=== PATIENT | male | born 1980 | race Caucasian/White ===

== ENCOUNTER 2020-09-17 08:16 | Outpatient (CLI) | payer BC, SELFPAY ==
[2020-09-17 08:46] VITALS: BP 168/91; PULSE 83; RESP 16; TEMP 36.8; O2SAT 99
[2020-09-17 09:03] VITALS: BP 147/86; PULSE 81; RESP 16; O2SAT 96
[2020-09-17 10:00] VITALS: BP 143/88; PULSE 76; RESP 16; TEMP 36.4; O2SAT 93
== END 2020-09-17 13:04 | disposition home or self-care (01) ==
PROVIDERS: PCP Nurse Practitioner Family; Visit Provider Nurse Practitioner
DX: U07.1 COVID-19 (principal)
CPT/HCPCS: 96365

== ENCOUNTER → 2022-02-07 11:39 | Outpatient (BNVA) | payer OTHER, SELFPAY | PROVIDERS: PCP Nurse Practitioner Family; Visit Provider Registered Nurse | DX: N52.9 Male erectile dysfunction, unspecified (principal); I10 Essential (primary) hypertension | CPT/HCPCS: 81000 ==

== ENCOUNTER 2022-02-08 10:16 | Emergency (ER) | payer OTHER, SELFPAY ==
[2022-02-08 10:20] VITALS: BP 164/100; PULSE 80; RESP 17; TEMP 36.6; O2SAT 98; BMI 45.6
--- NOTE | 2022-02-08 10:25 | US_ITS ---
WS: [id number] SCROTAL ULTRASOUND EXAMINATION CLINICAL INFORMATION: pain swelling COMPARISON: None. FINDINGS: TESTES Normal in size and echotexture, without focal lesion. Color Doppler: Normal color Doppler flow pattern. Right testes size: 4.8 cm x 3.1 cm x 2.8 cm. Left testes size: 4.8 cm x 3.0 cm x 2.4 cm. EPIDIDYMIDES Normal in size and echotexture, without focal lesion. Color Doppler: Normal color Doppler flow pattern. Right epididymis size: 1.1 cm x 1.3 cm x 0.8 cm. Left epididymitis size: 0.9 cm x 1.2 cm x 0.9 cm. HYDROCELE None. VARICOCELE None. OTHER FINDINGS None. US/US scrotum [id number] IMPRESSION: Normal scrotal ultrasound.
--- NOTE | 2022-02-08 10:25 | W.ED.MALEGU ---
HPI - Male Genitourinary General: Chief complaint: Urogenital-Male Stated complaint: Right testical swollen and hurting Time Seen by Provider: 02/08/22 10:21 Source: patient Mode of arrival: ambulatory History of Present Illness: 41-year-old male presents emergency room with complaint of sudden onset of right testicular pain yesterday. Is progressively worsened. Patient is seen by his primary care doctor to small amount of blood in his urine was referred to the ER. He denies any trauma. He has previously had a vasectomy several years ago. No dysuria urgency or frequency. MD Complaint: testicle pain (Right) Onset (ago): day(s) (1) Duration: constant Location: right testicle Radiation: right testicle Severity: mild Quality: aching Relieving factors: none Exacerbating factors: none Associated symptoms: Deny discharge, dysuria, fevers/chills, hematuria, nausea, rash, swelling, urinary incontinence, urinary retention, mass or vomiting Review of Systems Const: Denies: fever(s), chills, body aches, change in appetite, fatigue or malaise ENMT: Denies: throat pain, ear or mastoid pain, nasal discharge or nasal congestion Card: Denies: chest pain, edema, dyspnea on exertion or orthopnea Resp: Denies: dyspnea, productive cough or non-productive cough GI: Denies: nausea or vomiting : Denies: dysuria, urinary incontinence or hematuria Skin/Breast: Denies: rash or pruritus PFS ED PFSH: Medical History Hypertension Family History Grandmother Lung disease Denies family history of Diabetes CAD (coronary artery disease) Dementia Chronic kidney disease (CKD) Cancer Hypertension Stroke Social History Smoking and tobacco status: current some day smoker cigarettes Alcohol intake: never Adopted: No Caregiver/support person: No Lives independently: No Household members: significant other and children service: No Current occupational status: employed Sexually active: Yes Current gender identity: Male Physical Exam Const: COMMON NORMALS: no acute distress GENERAL APPEARANCE: cooperative and comfortable ORIENTATION/CONSCIOUSNESS: Yes awake, Yes oriented to person, Yes oriented to place and Yes oriented to time HENMT: COMMON NORMALS: normocephalic, atraumatic and hearing grossly normal bilaterally HEAD & SCALP: normocephalic and atraumatic Resp: COMMON NORMALS: normal respiratory effort, No retractions, No use of accessory muscles and clear to auscultation bilaterally AUSCULTATION: clear to auscultation bilaterally Cardio: COMMON NORMALS: regular rate, regular rhythm and No murmurs present (Cardio) RATE: regular rate RHYTHM: regular rhythm GI: COMMON NORMALS: Soft to palpation and No hepatosplenomegaly present AUSCULTATION: Yes normoactive bowel sounds PALPATION: Yes Soft to palpation, No Tenderness to palpation present (GI), No Guarding due to palpation present (GI) and Yes No hepatosplenomegaly present : COMMON NORMALS: Yes no CVA tenderness BLADDER/KIDNEY EXAM: Yes no CVA tenderness PENIS: normal penis MEATUS: meatus normal, no meatla discharge and No Blood at meatus present SCROTUM: Yes testes descended bilaterally, No inguinal hernia, Yes Scrotal tenderness present (Right testicle), No erythematous, No ecchymosis, No edematous, No scrotal swelling and No scrotal mass TESTES: Yes testicular lie normal Back/Pelvis: COMMON NORMALS: no CVA tenderness Extremity: COMMON NORMALS: normal to inspection, capillary refill normal, no clubbing, cyanosis or edema, no calf tenderness and no pedal edema Neuro: SENSORIUM/ORIENTATION: Yes oriented to person, Yes oriented to place and Yes oriented to time Skin: COMMON NORMALS: no rashes or lesions noted GENERAL SKIN EXAM: no rashes or lesions noted Course Vital Signs: Vital signs: Vital Signs Temperature 97.8 F 02/08/22 10:20 Pulse Rate 95 02/08/22 12:10 Respiratory Rate 16 02/08/22 12:10 Blood Pressure 154/97 02/08/22 12:10 Pulse Oximetry 99 02/08/22 12:10 Oxygen Delivery Me thod 02/08/22 12:00 [facility] - Male Medical Decision Making Scrotal ultrasound negative UA did show some red blood cells CT was done for potential of nephrolithiasis with referred pain to the testicle. No evidence of any intra-abdominal pathology no nephrolithiasis. We will discharge patient home follow-up with primary care with urology if persist use diclofenac ice for comfort testicular support Medical Records I reviewed the patient's medical records. Lab Data I reviewed the patient's lab results. 02/08/22 11:15 02/08/22 11:15 Radiology Impressions Scrotum Ultrasound 02/08/22 10:25 IMPRESSION: Normal scrotal ultrasound. Abdomen/Pelvis CT 02/08/22 10:45 IMPRESSION: No urinary tract calculus or obstruction. COMMENTS: 1. Consistent with the [place] [employer]'s Incidental Findings Committee white paper (J Am Terence Radiol 2017): For any incidental adrenal lesion greater than or equal to 1 cm but less than or equal to 4 cm classified in this report as benign, likely benign, or containing fat (including classification as an adenoma or myelolipoma), no follow-up imaging is recommended per consensus recommendations based on imaging criteria. Further lab evaluation could be pursued if warranted based on clinical findings. 2. Consistent with the [place] [employer]'s Incidental Findings Committee white paper (J Am Terence Radiol 2018): Any incidental renal lesion less than 1 cm or classified as too small to characterize, or any incidental cystic renal lesion characterized as simple-appearing, is likely benign. No follow-up imaging is recommended for these lesions per consensus recommendations based on imaging criteria. Laboratory Results WBC 8.4 10^3/uL (4.0-10.0) 02/08/22 11:15 RBC 5.07 10^6/uL (4.1-5.3) 02/08/22 11:15 Hgb 14.8 g/dL (11.7-16.6) 02/08/22 11:15 Hct 43.7 % (42.0-52.0) 02/08/22 11:15 MCV 86.2 fl (80-94) 02/08/22 11:15 MCH 29.2 pg (28.0-34.0) 02/08/22 11:15 MCHC 33.9 g/dL (30.0-36.0) 02/08/22 11:15 RDW 12.6 % (12.1-15.1) 02/08/22 11:15 Plt Count 268 10^3/cmm (130-400) 02/08/22 11:15 MPV 10.1 fL (7.4-10.4) 02/08/22 11:15 Neut % (Auto) 61.3 % 02/08/22 11:15 Lymph % (Auto) 29.0 % 02/08/22 11:15 [place] % (Auto) 6.6 % 02/08/22 11:15 Eos % (Auto) 2.3 % 02/08/22 11:15 Baso % (Auto) 0.6 % 02/08/22 11:15 Neut # (Auto) 5.17 10^3/uL (1.8-7.7) 02/08/22 11:15 Lymph # (Auto) 2.5 10^3/uL (0.8-4.8) 02/08/22 11:15 [place] # (Auto) 0.6 10^3/uL (0.2-0.9) 02/08/22 11:15 Eos # (Auto) 0.2 10^3/uL (0.0-0.8) 02/08/22 11:15 Baso # (Auto) 0.1 10^3/uL (0.0-0.1) 02/08/22 11:15 Nucleated RBC % (auto) 0 % 02/08/22 11:15 Nucleated RBCs # 0.0 /100WBC 02/08/22 11:15 Sodium 138 mmol/L (136-145) 02/08/22 11:15 Potassium 4.2 mmol/L (3.5-5.1) 02/08/22 11:15 Chloride 103 mmol/L (98-107) 02/08/22 11:15 Carbon Dioxide 29 mmol/L (22-29) 02/08/22 11:15 Anion Gap 10.2 (5-19) 02/08/22 11:15 BUN 14 mg/dL (6-20) 02/08/22 11:15 Creatinine 0.6 mg/dL (0.7-1.2) L 02/08/22 11:15 GFR Calculation 148.5 mL/min (90-130) H 02/08/22 11:15 Glucose 93 mg/dL (65-115) 02/08/22 11:15 Calculated Osmolality 286 mOsm/kg (285-295) 02/08/22 11:15 Calcium 8.5 mg/dL (8.5-10.5) 02/08/22 11:15 Urine Color Yellow (Yellow) 02/08/22 10:26 Urine Appearance Cloudy (CLEAR) A 02/08/22 10:26 Urine pH 7 (5-7) 02/08/22 10:26 Ur Specific [place] 1.015 (1.005-1.030) 02/08/22 10:26 Urine Protein Neg (Negative) 02/08/22 10:26 Urine Glucose (UA) Norm (Normal) 02/08/22 10:26 Urine Ketones Negative (Negative) 02/08/22 10:26 Urine Blood 2+ (Negative) H 02/08/22 10:26 Urine Nitrate Negative (Negative) 02/08/22 10:26 Urine Bilirubin Neg (Negative) 02/08/22 10:26 Urine Urobilinogen Neg mg/dL (Negative) 02/08/22 10:26 Ur Leukocyte Esterase Negative (Negative) 02/08/22 10:26 Urine RBC 5-10 /hpf (0-2) H 02/08/22 10:26 Urine WBC None /hpf (0-5) 02/08/22 10:26 Ur Squamous Epith Cells Rare /hpf (0-5) 02/08/22 10:26 Amorphous Sediment Not Reportable 02/08/22 10:26 Urine Bacteria 1+ /hpf (NONE) H 02/08/22 10:26 Discharge Plan Discharge Patient Disposition: Home Clinical Impression: Pain in right testicle Condition: Stable Prescriptions: New doxycycline hyclate 100 mg capsule 100 mg PO BID 10 Days Qty: 20 0RF diclofenac sodium 75 mg tablet,delayed release (DR/EC) 75 mg PO Q12H PRN (Reason: pain) Qty: 20 0RF Discontinued ibuprofen 200 mg Capsule 800 mg PO Q6H PRN (Reason: Pain) No Action lisinopril-hydrochlorothiazide 10-12.5 mg tablet 1 tab PO DAILY 30 Days Qty: 30 0RF sildenafil [Viagra] 50 mg tablet 50 mg PO DAILY PRN (Reason: sexual activity) 30 Days Qty: 15 0RF Rx Instructions: administer 30 minutes to 4 hours before activity amlodipine 5 mg tablet 5 mg PO DAILY Tylenol 325 mg Capsule 650 mg PO QID PRN (Reason: Pain) Sinex Long-Acting 0.05 % [place],Non-Aerosol 2 spray INTRANASAL Q12H PRN (Reason: Congestion) Discharge Orders: Discharge ED (Routine); Ordered 02/08/22 Ordered By: Tj Underwood Referrals: Terence Rangel FNP [Primary Care Provider] - Discharge Diet: Usual diet Discharge Activity: Increase activity as tolerated Patient Instructions: Opioid Safety, Pain Management Activity Restrictions/Additional Instructions: You were seen today for testicular pain. Ultrasound was negative, There is a small amount of blood in your urine, but the CT of the abdomen pelvis did not show any signs of renal stones or any other abnormality. Use the diclofenac for pain 1 every 12 hours as needed. Prophylactically will put you on doxycycline 100 mg twice daily until culture results have returned. Coding Level of Care Code ED Graduate Fellow for Fifi You
[2022-02-08 10:35] VITALS: BP 151/91; PULSE 71; RESP 16; O2SAT 96
[2022-02-08 10:39] LABS: Bilirubin Urine Neg (Negative); Blood Urine 2+ (Negative); Glucose Urine UA Norm (Normal); Ketones Urine Negative (Negative); Leukocyte Esterase Urine Negative (Negative); Nitrate Urine Negative (Negative); Protein Urine Neg (Negative); Specific Gravity, Urine 1.015 (1.005-1.030); Urine Appearance Cloudy (CLEAR); Urine Color Yellow (Yellow); Urobilinogen Urine Neg (Negative); pH Urine 7 (5-7)
[2022-02-08 10:40] LABS: Add Urine Microscopic? YES
[2022-02-08 10:42] LABS: Bacteria Urine 1+ /hpf; Squamous Epithelial Cell Urine RARE /hpf (0-5)
[2022-02-08 10:43] LABS: Add Urine Culture? Yes
--- NOTE | 2022-02-08 10:45 | CTR_ITS ---
PROCEDURE INFORMATION: Exam: CT Abdomen And Pelvis Without Contrast Exam date and time: 02/08/2022 11:22 AM Age: 41 years old Clinical indication: Abdominal pain; Flank pain TECHNIQUE: Imaging protocol: Computed tomography of the abdomen and pelvis without contrast. Radiation optimization: All CT scans at this facility use at least one of these dose optimization techniques: automated exposure control; mA and/or kV adjustment per patient size (includes targeted exams where dose is matched to clinical indication); or iterative reconstruction. COMPARISON: US scrotum [id number] 02/08/2022 11:00 AM RADIATION DOSE METRICS: Total DLP (mGy-cm): 1563.93 FINDINGS: Diaphragm: Small bilateral foramen of [place] hernias containing fat. Liver: The liver is homogeneous and is not enlarged. Gallbladder and bile ducts: No calcified gallstones, gallbladder wall thickening, or pericholecystic inflammation. No biliary ductal dilation. Pancreas: No pancreatic enlargement, peripancreatic inflammation, or ductal dilation. Spleen: The spleen is homogeneous and is not enlarged. Adrenal glands: The right adrenal gland is normal. There is an exophytic 1.9 cm left adrenal nodule with attenuation measurements compatible with a lipid rich adrenal adenoma. Kidneys and ureters: No renal or ureteral calculus. No hydronephrosis or hydroureter. There is a 3 cm simple appearing left renal cyst. Stomach and bowel: No bowel obstruction. Mild diverticulosis without diverticulitis. Appendix: The appendix has a normal caliber. There is gas and a small appendicolith in the lumen. No appendiceal wall thickening or periappendiceal inflammation. Intraperitoneal space: No ascites or pneumoperitoneum. Vasculature: No abdominal aortic aneurysm. Lymph nodes: No pathologically enlarged lymph nodes. Urinary bladder: No urinary bladder calculus or wall thickening. Reproductive: Unremarkable as visualized. Bones/joints: Limbus vertebra formation at L4. Soft tissues: Small umbilical hernia containing fat. CT/CT kidney stone [id number] IMPRESSION: No urinary tract calculus or obstruction. COMMENTS: 1. Consistent with the [place] [employer]'s Incidental Findings Committee white paper (J Am Terence Radiol 2017): For any incidental adrenal lesion greater than or equal to 1 cm but less than or equal to 4 cm classified in this report as benign, likely benign, or containing fat (including classification as an adenoma or myelolipoma), no follow-up imaging is recommended per consensus recommendations based on imaging criteria. Further lab evaluation could be pursued if warranted based on clinical findings. 2. Consistent with the [place] [employer]'s Incidental Findings Committee white paper (J Am Terence Radiol 2018): Any incidental renal lesion less than 1 cm or classified as too small to characterize, or any incidental cystic renal lesion characterized as simple-appearing, is likely benign. No follow-up imaging is recommended for these lesions per consensus recommendations based on imaging criteria.
[2022-02-08 11:24] LABS: Basophils # 0.1 10^3/uL (0.0-0.1); Basophils % 0.6 %; Eosinophils # 0.2 10^3/uL (0.0-0.8); Eosinophils % 2.3 %; Hematocrit 43.7 % (42.0-52.0); Hemoglobin 14.8 g/dL (11.7-16.6); Lymphocytes # 2.5 10^3/uL (0.8-4.8); Mean Corpuscular HGB Conc 33.9 g/dL (30.0-36.0); Mean Corpuscular Hemoglobin 29.2 pg (28.0-34.0); Mean Corpuscular Volume 86.2 fl (80-94); Mean Platelet Volume 10.1 fL (7.4-10.4); Monocytes # 0.6 10^3/uL (0.2-0.9); Monocytes % 6.6 %; Neutrophils # 5.17 10^3/uL (1.8-7.7); Neutrophils % 61.3 %; Nucleated Red Blood Cells % 0 %; Platelet Count 268 10^3/cmm (130-400); Red Blood Count 5.07 10^6/uL (4.1-5.3); Red Cell Distribution Width 12.6 % (12.1-15.1); White Blood Count 8.4 10^3/uL (4.0-10.0)
[2022-02-08 11:30] VITALS: BP 179/106; PULSE 73; RESP 16; O2SAT 97
[2022-02-08 11:39] LABS: Anion Gap 10.2 (5-19); Blood Urea Nitrogen 14 mg/dL (6-20); Calcium 8.5 mg/dL (8.5-10.5); Carbon Dioxide 29 mmol/L (22-29); Chloride 103 mmol/L (98-107); Glomerular Filtration Rate 148.5 mL/min (90-130); Glucose 93 mg/dL (65-115); Osmolality Calculated 286 mOsm/kg (285-295); Potassium 4.2 mmol/L (3.5-5.1); Sodium 138 mmol/L (136-145)
[2022-02-08 12:00] VITALS: BP 169/92; PULSE 71; RESP 16; O2SAT 95
[2022-02-08 12:10] VITALS: BP 154/97; PULSE 95; RESP 16; O2SAT 99
== END 2022-02-08 12:12 | disposition home or self-care (01) ==
PROVIDERS: Emergency Provider Family Medicine; PCP Nurse Practitioner Family
DX: N50.811 Right testicular pain (principal); I10 Essential (primary) hypertension; F17.210 Nicotine dependence, cigarettes, uncomplicated
CPT/HCPCS: 36415; 74176; 76870; 80048; 81001; 85025; 87086; 87491; 87591; 99284

== ENCOUNTER 2024-01-18 09:38 | Emergency (ER) | payer OTHER, SELFPAY ==
--- NOTE | 2024-01-18 09:41 | ECG_ITS ---
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 Measurements Intervals [place] Rate: 73 P: 20 TX: 183 QRS: 28 QRSD: 97 T: 45 QT: 369 QTc: 407 Interpretive Statements SINUS RHYTHM No previous ECG available for comparison Electronically Signed On 01-18-2024 16:54:49 HARDWARE DEVELOPER by Tha Faith M.D. [email or web address]
--- NOTE | 2024-01-18 09:41 | XR_ITS ---
WS: [id number] XR chest 1V portable [id number] REASON FOR EXAM: chest pain FINDINGS: No recent exam for comparison. Mild tortuosity of the thoracic aorta. The heart is mildly enlarged. Calcified granulomas disease bilaterally. No acute pulmonary parenchymal or pleural abnormality. Moderate degenerative change in the mid and lower thoracic spine. XR/XR chest 1V portable [id number] IMPRESSION: Cardiomegaly with no acute chest abnormality.
[2024-01-18 09:43] VITALS: BP 160/89; PULSE 69; RESP 17; TEMP 37; O2SAT 97; BMI 56.3
[2024-01-18 10:07] LABS: Basophils # 0.1 10^3/uL (0.0-0.1); Basophils % 0.5 %; Eosinophils # 0.2 10^3/uL (0.0-0.8); Eosinophils % 1.7 %; Hematocrit 45.2 % (37-53); Lymphocytes # 2.4 10^3/uL (0.8-4.8); Lymphocytes % 21.5 %; Mean Corpuscular HGB Conc 33.2 g/dL (30-55); Mean Corpuscular Hemoglobin 29.1 pg (27-33); Mean Corpuscular Volume 87.8 fl (82-101); Mean Platelet Volume 9.8 fL (7.4-10.4); Monocytes # 0.5 10^3/uL (0.2-0.9); Monocytes % 4.3 %; Neutrophils # 7.89 10^3/uL (1.8-7.7); Neutrophils % 71.5 %; Nucleated Red Blood Cells % 0 %; Platelet Count 333 10^3/cmm (157-399); Red Blood Count 5.15 10^6/uL (3.85-5.65); Red Cell Distribution Width 12.6 % (12.1-15.1); White Blood Count 11.03 10^3/uL (3.29-11.43)
[2024-01-18 10:26] LABS: Alanine Aminotransferase 26 U/L (0-41); Albumin Level 4.3 g/dL (3.5-5.2); Alkaline Phosphatase 86 U/L (40-130); Anion Gap 16.1 (5-19); Aspartate Amino Transferase 17 U/L (0-40); Blood Urea Nitrogen 11 mg/dL (6-20); Calcium 9.3 mg/dL (8.5-10.5); Carbon Dioxide 26 mmol/L (22-29); Chloride 100 mmol/L (98-107); Creatinine Clr Calc Pharmacy 235.7127; Globulin 3.5 g/dL (1.3-4.6); Glucose 103 mg/dL (65-115); Osmolality Calculated 286 mOsm/kg (285-295); Potassium 4.1 mmol/L (3.5-5.1); Sodium 138 mmol/L (136-145); Total Bilirubin 0.3 mg/dL (0.15-1.2); Total Protein 7.8 g/dL (6.6-8.7)
[2024-01-18 10:27] LABS: Troponin(5th) Baseline 8 ng/L (0-15)
--- NOTE | 2024-01-18 11:41 | ECG_ITS ---
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 Measurements Intervals [place] Rate: 52 P: 28 MS: 165 QRS: 43 QRSD: 100 T: 46 QT: 436 QTc: 406 Interpretive Statements SINUS BRADYCARDIA Early repolarization changes, in the inferior leads Compared to ECG 01/18/2024 09:41:11 Sinus rhythm no longer present Electronically Signed On 01-18-2024 17:00:05 SENIOR LICENSING MANAGER by Tha Faith M.D. [email or web address]
--- NOTE | 2024-01-18 13:45 | ED_ITS ---
HPI - Chest Pain 2 General: Chief Complaint: Chest Pain Stated Complaint: chest pain Time Seen by Provider: 01/18/24 13:35 History of Present Illness: 43-year-old male presents emergency room complaining of chest discomfort. He was at work had a nauseous sensation he states he turned to get a peppermint at his desk sharp bit of chest pain that lasted for a few seconds and then resolved he still has some pressure no radiation of the neck back or arms no shortness of breath or diaphoresis. 10 or 15 years ago to stress test that was negative patient does smoke he has sleep apnea he is not diabetic as far as he knows he is on several medications for hypertension. He is a vague pressure at this time but no sharp chest pain. Associated symptoms: Deny abdominal pain, dyspnea or fever(s) Related Data Home Medications Medication Instructions Recorded Confirmed hydrochlorothiazide 25 mg tablet 25 mg PO DAILY 01/18/24 01/18/24 ibuprofen 200 mg tablet (Advil) 800 mg PO Q6H PRN Pain 01/18/24 01/18/24 lisinopril 20 mg tablet 20 mg PO DAILY 01/18/24 01/18/24 metoprolol succinate 100 mg 100 mg PO DAILY 01/18/24 01/18/24 tablet,extended release 24 hr Previous Rx's Medication Instructions Recorded sildenafil 50 mg tablet (Viagra) 50 mg PO DAILY PRN sexual activity 03/06/22 30 days #25 tabs amlodipine 5 mg tablet 5 mg PO DAILY 30 days #30 tabs 04/26/22 aspirin 81 mg tablet,delayed 81 mg PO DAILY #30 tabs 01/18/24 release Allergies Allergy/AdvReac Type Severity Reaction Status Date / Time No Known Allergies Allergy Verified 03/06/22 16:01 Review of Systems 2 Const: Denies: fever(s) or chills Card: Reports: chest pain Resp: Denies: dyspnea GI: Denies: abdominal pain : Denies: dysuria, urinary frequency or urinary urgency Musc: Denies: neck pain or back pain Skin/Breast: Denies: rash PFSH ED 2 PFSH: Medical History Hypertension Family History Grandmother Lung disease Denies family history of Diabetes CAD (coronary artery disease) Dementia Chronic kidney disease (CKD) Cancer Hypertension Stroke Social History Smoking and tobacco/nicotine status: current some day tobacco/nicotine user cigarettes Alcohol intake: never Substance/Drug Use: never Adopted: No Caregiver/support person: No Lives independently: No Household members: significant other and children service: No Current occupational status: employed Sexually active: Yes Do you think of yourself as: Straight/Heterosexual Current gender identity: Male Physical Exam 2 Const: GENERAL APPEARANCE: cooperative ORIENTATION/CONSCIOUSNESS: Yes awake, Yes oriented to person, Yes oriented to place and Yes oriented to time HENMT: COMMON NORMALS: normocephalic, atraumatic and hearing grossly normal bilaterally HEAD & SCALP: normocephalic and atraumatic Resp: COMMON NORMALS: normal respiratory effort, No retractions, No use of accessory muscles and clear to auscultation bilaterally AUSCULTATION: clear to auscultation bilaterally Cardio: COMMON NORMALS: regular rate, regular rhythm and No murmurs present (Cardio) RATE: regular rate RHYTHM: regular rhythm GI: COMMON NORMALS: Soft to palpation and No hepatosplenomegaly present A USCULTATION: Yes normoactive bowel sounds PALPATION: Yes Soft to palpation, No Tenderness to palpation present (GI), No Guarding due to palpation present (GI) and Yes No hepatosplenomegaly present Extremity: COMMON NORMALS: normal to inspection, capillary refill normal, no clubbing, cyanosis or edema, no calf tenderness and no pedal edema Neuro: SENSORIUM/ORIENTATION: Yes oriented to person, Yes oriented to place and Yes oriented to time Skin: COMMON NORMALS: no rashes or lesions noted GENERAL SKIN EXAM: no rashes or lesions noted Course 2 Vital Signs: Vital signs: Vital Signs Temperature 98.6 F 01/18/24 09:43 Pulse Rate 55 L 01/18/24 15:15 Respiratory Rate 23 H 01/18/24 14:00 Blood Pressure 143/82 01/18/24 15:15 Pulse Oximetry 98 01/18/24 15:15 Oxygen Delivery Me thod Room Air 01/18/24 09:43 MDM - Chest Pain Medical Decision Making Cardiac enzymes and EKG negative. Blood pressure is well-controlled. He denies any shortness of breath. He is not having any further chest pain now most of his pain was sharp lasted for couple of seconds. EKG and cardiac enzymes did not show any signs of acute coronary syndrome is not currently having any symptoms will discharge patient home set up for outpatient stress testing Medical Records I reviewed the patient's medical records. Lab Data I reviewed the patient's lab results. 01/18/24 09:56 01/18/24 09:56 Radiology Impressions Chest X-Ray 01/18/24 09:41 IMPRESSION: Cardiomegaly with no acute chest abnormality. Laboratory Results WBC 11.03 10^3/uL (3.29-11.43) 01/18/24 09:56 RBC 5.15 10^6/uL (3.85-5.65) 01/18/24 09:56 Hgb 15.00 g/dL (11.27-16.99) 01/18/24 09:56 Hct 45.2 % (37-53) 01/18/24 09:56 MCV 87.8 fl (82-101) 01/18/24 09:56 MCH 29.1 pg (27-33) 01/18/24 09:56 MCHC 33.2 g/dL (30-55) 01/18/24 09:56 RDW 12.6 % (12.1-15.1) 01/18/24 09:56 Plt Count 333 10^3/cmm (157-399) 01/18/24 09:56 MPV 9.8 fL (7.4-10.4) 01/18/24 09:56 Neut % (Auto) 71.5 % 01/18/24 09:56 Lymph % (Auto) 21.5 % 01/18/24 09:56 [place] % (Auto) 4.3 % 01/18/24 09:56 Eos % (Auto) 1.7 % 01/18/24 09:56 Baso % (Auto) 0.5 % 01/18/24 09:56 Neut # (Auto) 7.89 10^3/uL (1.8-7.7) H 01/18/24 09:56 Lymph # (Auto) 2.4 10^3/uL (0.8-4.8) 01/18/24 09:56 [place] # (Auto) 0.5 10^3/uL (0.2-0.9) 01/18/24 09:56 Eos # (Auto) 0.2 10^3/uL (0.0-0.8) 01/18/24 09:56 Baso # (Auto) 0.1 10^3/uL (0.0-0.1) 01/18/24 09:56 Nucleated RBC % (auto) 0 % 01/18/24 09:56 Nucleated RBCs # 0.0 /100WBC 01/18/24 09:56 Sodium 138 mmol/L (136-145) 01/18/24 09:56 Potassium 4.1 mmol/L (3.5-5.1) 01/18/24 09:56 Chloride 100 mmol/L (98-107) 01/18/24 09:56 Carbon Dioxide 26 mmol/L (22-29) 01/18/24 09:56 Anion Gap 16.1 (5-19) 01/18/24 09:56 BUN 11 mg/dL (6-20) 01/18/24 09:56 Creatinine 0.6 mg/dL (0.7-1.2) L 01/18/24 09:56 GFR Calculation 147.0 mL/min (90-130) H 01/18/24 09:56 Glucose 103 mg/dL (65-115) 01/18/24 09:56 Calculated Osmolality 286 mOsm/kg (285-295) 01/18/24 09:56 Calcium 9.3 mg/dL (8.5-10.5) 01/18/24 09:56 Total Bilirubin 0.3 mg/dL (0.15-1.2) 01/18/24 09:56 AST 17 U/L (0-40) 01/18/24 09:56 ALT 26 U/L (0-41) 01/18/24 09:56 Alkaline Phosphatase 86 U/L (40-130) 01/18/24 09:56 Troponin T Baseline 8 ng/L (0-15) 01/18/24 09:56 Troponin T 120 Minute 6.00 ng/L (0-15) 01/18/24 11:48 Delta Troponin T -2.00 ABS# (0-10) L 01/18/24 11:48 Total Protein 7.8 g/dL (6.6-8.7) 01/18/24 09:56 Albumin 4.3 g/dL (3.5-5.2) 01/18/24 09:56 Globulin 3.5 g/dL (1.3-4.6) 01/18/24 09:56 All radiology interpretation(s) finalized by discharge Discharge Plan Discharge Patient Disposition: Home Clinical Impression: Atypical chest pain Condition: Stable Prescriptions: New aspirin 81 mg tablet,delayed release (DR/EC) 81 mg PO DAILY Qty: 30 0RF No Action sildenafil [Viagra] 50 mg tablet 50 mg PO DAILY PRN (Reason: sexual activity) 30 Days Qty: 25 2RF Rx Instructions: administer 30 minutes to 4 hours before activity amlodipine 5 mg tablet 5 mg PO DAILY 30 Days Qty: 30 0RF lisinopril 20 mg tablet 20 mg PO DAILY metoprolol succinate 100 mg tablet extended release 24 hr 100 mg PO DAILY ibuprofen [Advil] 200 mg Tablet 800 mg PO Q6H PRN (Reason: Pain) hydrochlorothiazide 25 mg tablet 25 mg PO DAILY Discharge Orders: Discharge ED (Routine); Ordered 01/18/24 Ordered By: Tj Underwood Referrals: Hector Rangel, GREEN MARKETER [Primary Care Provider] - Discharge Diet: Usual diet Discharge Activity: Resume usual activity Patient Instructions: Opioid Safety, Pain Management Activity Restrictions/Additional Instructions: Thank you for choosing [facility] for your healthcare needs today. It is very important that you follow up as instructed or that you return to the Emergency Department should you have concerns or if your condition changes or worsens in any way. You were seen in the emergency room after brief episode of chest pain. Your cardiac enzymes and EKG does not show any acute changes. Recommend you take a baby aspirin daily follow-up with your primary care doctor within the week. If you have recurrence of symptoms recheck. Coding Level of Care Code ED Apprentice Machinist Outside for Fifi You
[2024-01-18 14:00] VITALS: BP 146/75; PULSE 54; RESP 23; O2SAT 95
[2024-01-18 14:30] VITALS: BP 155/71; PULSE 47; O2SAT 98
[2024-01-18 15:00] VITALS: BP 121/75; PULSE 67; O2SAT 96
[2024-01-18 15:15] VITALS: BP 143/82; PULSE 55; O2SAT 98
--- NOTE | 2024-01-23 08:50 | DCPLANNER ---
Sent outpatient exercise stress test request- Centralized scheduling
== END 2024-01-18 15:15 | disposition home or self-care (01) ==
PROVIDERS: Physician Assistant; Emergency Provider Family Medicine; PCP Nurse Practitioner Family
DX: R07.89 Other chest pain (principal); F17.210 Nicotine dependence, cigarettes, uncomplicated; I10 Essential (primary) hypertension
CPT/HCPCS: 36415; 71045; 80053; 84484; 85025; 93005; 99285